=== PATIENT | female | born 1960 | race Caucasian/White ===

== ENCOUNTER 2023-10-02 18:10 | Emergency (ER) | payer OTHER, SELFPAY ==
[2023-10-02 18:20] VITALS: BP 171/100
--- NOTE | 2023-10-02 19:41 | ED.GENMED ---
History of Present Illness
General
Chief Complaint: Musculo-Skeletal Complaint
Time Seen by Provider: 10/02/23 19:23
Travel History
Have you had any contact with someone who has COVID-19?: No
Do you have any symptoms of coronavirus? Fever > 100 degrees, chills, cough, shortness of breath, sore throat, loss of taste or smell, muscle aches, or headache?: No
History of Present Illness
History of Present Illness:
63-year-old female presents to the emergency department for evaluation of left wrist pain after a mechanical fall. Fell onto an outstretched hand. Pain radiates from the wrist to the mid forearm. Denies any elbow or shoulder pain. Also notes a
small laceration to the left index finger
Review of Systems
Review of Systems
Allergies reviewed?: Yes
All Other Systems: ROS reviewed and negative except as documented in HPI and ROS
Phy Exam
Physical Exam
Physical Exam:
GEN: Well appearing, NAD, WDWN
HEENT: Oral mucosa moist, no scleral icterus
Cardiac: Regular rate
Lung: No respiratory distress, no tachypnea
MSK: Moderate swelling to the left wrist with no visible deformity. Subcentimeter superficial laceration to the left index finger just distal to the extensor aspect of the PIP joint
Skin: Good color, no pallor or jaundice, no rashes
Neuro: AO x3, moves all extremities freely
Psych: Calm, cooperative
Course
Orders/Labs/Results
Orders:
Orders
10/02/23 18:24
Wrist, Left 3 Views CR [CR Wrist - Left Min 3 Views] Urgent
Comment:
Reason For Exam: fall, left wrist deformity
Vital Signs
Initial and Last Documented VS:
Initial Vital Signs
Temp Pulse Resp BP Pulse Ox
98.1 F 70 18 171/100 99
10/02/23 18:20 10/02/23 18:20 10/02/23 18:20 10/02/23 18:20 10/02/23 18:20
Last Documented Vital Signs
Temp Pulse Resp BP Pulse Ox
98.1 F 70 18 171/100 99
10/02/23 18:20 10/02/23 18:20 10/02/23 18:20 10/02/23 18:20 10/02/23 18:20
MDM/Problems Addressed
MDM/Problems Addressed:
I personally splinted the patient with Ortho-Glass, sugar-tong splint applied with sling due to distal radial fracture. No evidence of a displaced fracture requiring reduction. In regards to the small laceration this was cleansed and dressed with
bacitracin and a Band-Aid. Outpatient orthopedic follow-up advised
*Critical Care Note
Total Time (30-74mins, 75-104mins- exclusive of procedures): Not Applicable
ED Attending Note
-
Portions of this chart may have been created with voice recognition software.� Occasional wrong word or��sound alike� substitutions may have occurred due to the inherent limitations of voice recognition software.
Discharge Plan
Departure
Patient Disposition: Home (Routine Discharge)
Date of Disposition: 10/02/23
Time of Disposition: 19:41
Patient with high blood pressure during this ER visit?: No
Discharge Problem:
Nondisplaced fracture of left radial styloid process, initial encounter for closed fracture
Instructions: Wrist Fracture (DC)
Referrals:
William Smith MD [Active] -
Stand Alone Forms: Return to Work
Interventions
Interventions:
*Nursing Disposition Last Done: 10/02/23 19:58
ED-Musculoskeletal Assessment Last Done: 10/02/23 19:57
Discharge Date and Time
Discharge Date/Time: 10/02/23 19:58
Print Language: YI
== END 2023-10-02 19:58 | disposition home or self-care (01) ==
LOC: EMR 18:10
PROVIDERS: EMERGENCY PHYSICIAN Emergency Medicine; FAMILY PHYSICIAN Internal Medicine
DX: S52.515A Nondisplaced fracture of left radial styloid process, initial encounter for closed fracture (principal); S61.211A Laceration without foreign body of left index finger without damage to nail, initial encounter; W19.XXXA Unspecified fall, initial encounter
CPT/HCPCS: 99283; 29125; 73110

== ENCOUNTER → 2023-10-04 17:10 | Outpatient (REF) | payer BC, SELFPAY | LOC: RAD 17:10 | PROVIDERS: ATTENDING PHYSICIAN Orthopaedic Surgery; FAMILY PHYSICIAN Internal Medicine | DX: M25.532 Pain in left wrist (principal) | CPT/HCPCS: 73200 ==